=== PATIENT | female | born 1990 | race Two or more races ===

== ENCOUNTER 2021-08-11 21:25 | Emergency (ER) | payer OTHER ==
[~2021-08-11] VITALS: Ht 157.5 cm; Wt 62.6 kg
[2021-08-12] MEDS ORDERED: CIPRO500 MG PO (04:14)
[2021-08-12] MEDS ORDERED: KETO10TA2 PO (04:14)
== END 2021-08-12 04:38 ==
LOC: ER 21:25
DX: N23 Unspecified renal colic (principal); R11.2 Nausea with vomiting, unspecified; R19.7 Diarrhea, unspecified

== ENCOUNTER 2022-05-21 12:35 | Emergency (ER) | payer OTHER ==
[~2022-05-21] VITALS: Ht 157.5 cm; Wt 61.2 kg
[~2022-05-21 12:35] MED LIST: CIPRO500 MG PO; KETO10TA2 PO
== END 2022-05-21 13:34 | disposition home or self-care (01) ==
LOC: ER 12:35
DX: B30.8 Other viral conjunctivitis (principal)

== ENCOUNTER 2024-11-17 11:43 | Emergency (ER) | payer OTHER ==
[~2024-11-17] VITALS: Ht 157.5 cm; Wt 58.1 kg
[2024-11-17] MEDS ORDERED: KETOROLAC TROMETHAMINE 30 MG VIAL IM ONE (13:15)
[2024-11-17] MEDS ORDERED: ONDANSETRON HCL 2 MG/ML VIAL IV ONE (13:15)
[2024-11-17 13:56] LABS: HEMATOCRIT 42.3 % (36.0-45.00); HEMOGLOBIN 14.4 g/dL (12.0-15.00); MEAN CELL VOLUME 91.4 fL (80.00-100.00); MEAN CORPUSCULAR HEMOGLOBIN 31.1 pg (27.00-32.0); MEAN CORPUSCULAR HGB CONC 34.1 g/dl (32.0-36.0); PLATELET COUNT 239 K/uL (150-450); RED BLOOD COUNT 4.63 M/uL (4.00-6.00); RED CELL DISTRIBUTION WIDTH 13.5 % (11.5-14.5)
[2024-11-17 14:22] LABS: ANION GAP 10 (10.0-20.0); BLOOD UREA NITROGEN 10 mg/dL (7-18); BUN CREA RATIO 16 (7.0-25.0); CALCIUM 9.1 mg/dL (8.5-10.1); CARBON DIOXIDE 28 mEq/L (21-32); CHLORIDE 108 mmol/L (98-107); CREATININE SERUM 0.62 mg/dL (0.55-1.02); GFR 109.54; GLUCOSE FASTING 91 mg/dL (65-100); OSMOLALITY SERUM 282 MOSM/KG (275-295); POTASSIUM 3.96 mEq/L (3.5-5.1); SODIUM 142 mmol/L (136-145)
[2024-11-17 14:32] LABS: HCG QUANTITATIVE < 1 mUI/mL (1-3)
[2024-11-17 15:08] LABS: PH,URINE 6.5 (5.0-8.0); URINE APPEARANCE Clear; URINE BILIRRUBIN Negative (NEGATIVE); URINE BLOOD Small; URINE COLOR Yellow; URINE GLUCOSE Negative (NEGATIVE); URINE KETONE Negative (NEGATIVE); URINE LEUKOCYTE Negative; URINE NITRATE Negative; URINE PROTEIN Negative (NEGATIVE); URINE UROBILINOGEN 0.2 E.U./dl
[2024-11-17 15:33] LABS: URINE BACTERIA 143 uL (0.0-1933); URINE EPITHELIAL CELLS 5.8 uL (0.0-38.8); URINE WBC 20.1 uL (0.0-23.2)
== END 2024-11-17 20:09 | disposition home or self-care (01) ==
LOC: ER 11:46
PROVIDERS: General Practice
DX: M62.830 Muscle spasm of back (principal); R10.32 Left lower quadrant pain